=== PATIENT | female | born 2000 | race Caucasian/White ===

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

== ENCOUNTER 2021-10-20 15:21 | Emergency (ER) | payer BC ==
--- NOTE | 2021-10-20 15:29 | ERPHSYRPT ---
- History of Present Illness Time Seen by Provider: 10/20/21 15:29 Source: patient, family Exam Limitations: no limitations Physician History: This is a 21-year-old white female who states that she fell and hit her head 2 days ago and she has a mild headache and just feels "foggy". She is concerned because the symptoms have persisted without improvement. Patient denies visual changes. Patient denies neck pain. She has not had a fever or cough or flulike symptoms. Timing/Duration: day(s) (2) Quality: aching Head Pain Location: global Severity of Pain-Max: moderate Severity of Pain-Current: mild (To moderate) Recent Head Trauma: head trauma > 24 hrs ago Modifying Factors: Improves With: noise Associated Symptoms: No facial pain, No neck pain, No stiff neck, No vision changes Allergies/Adverse Reactions: No Known Drug Allergies Allergy (Verified 12/22/20 20:05) Home Medications: No Reportable Medications [No Reported Medications] 12/22/20 [History] Hx Tetanus, Diphtheria Vaccination/Date Given: Yes Hx Influenza Vaccination/Date Given: No Hx Pneumococcal Vaccination/Date Given: No Travel Risk - International Travel Have you traveled outside of the country in past 3 weeks: No - Coronavirus Screening Are you exhibiting any of the following symptoms?: No Close contact with a COVID-19 positive Pt in past 14-21 Days: No - Vaccine Status Have you recieved a Covid-19 vaccination: Yes [employer] Tech: Moderna - Vaccination Dates Date of 2cond Vaccination (if applicable): NOT GOTTEN - Review of Systems Constitutional: No Symptoms Eyes: No Symptoms Ears, Nose, & Throat: No Symptoms Respiratory: No Symptoms Cardiac: No Symptoms Abdominal/Gastrointestinal: No Symptoms Genitourinary Symptoms: No Symptoms Musculoskeletal: No Symptoms Skin: No Symptoms Neurological: Headache, Other ("Fogginess") Psychological: No Symptoms Endocrine: No Symptoms Hematologic/Lymphatic: No Symptoms Immunological/Allergic: No Symptoms All Other Systems: Reviewed and Negative - Past Medical History Pertinent Past Medical History: No Neurological History: No Pertinent History ENT History: No Pertinent History Cardiac History: No Pertinent History Respiratory History: No Pertinent History Endocrine Medical History: No Pertinent History Musculoskeletal History: No Pertinent History GI Medical History: No Pertinent History History: No Pertinent History Psycho-Social History: No Pertinent History Female Reproductive Disorders: No Pertinent History - Past Surgical History Past Surgical History: Yes Neuro Surgical History: No Pertinent History Cardiac: No Pertinent History Respiratory: No Pertinent History Gastrointestinal: No Pertinent History Genitourinary: No Pertinent History Musculoskeletal: No Pertinent History Female Surgical History: No Pertinent History Other Surgical History: tonsil and adenoidectomy - Social History Smoking Status: Never smoker Exposure to second hand smoke: No Drug Use: none Patient Lives Alone: No - Nursing Vital Signs Nursing Vital Signs: Initial Vital Signs Temperature 98.2 F 10/20/21 15:57 Pulse Rate 69 10/20/21 15:57 Respiratory Rate 18 10/20/21 15:57 Blood Pressure 150/97 10/20/21 15:57 O2 Sat by Pulse Oximetry 97 10/20/21 15:57 Pain Scale Pain Intensity 4 - Physical Exam General Appearance: no apparent distress, alert, anxiety Eye Exam: PERRL/EOMI, eyes nml inspection Ears, Nose, Throat Exam: normal ENT inspection, moist mucous membranes Neck Exam: normal inspection, non-tender, supple, full range of motion Respiratory Exam: normal breath sounds, lungs clear, airway intact, No chest tenderness, No respiratory distress Cardiovascular Exam: regular rate/rhythm, normal heart sounds, normal peripheral pulses Gastrointestinal/Abdominal Exam: soft, normal bowel sounds, No tenderness Back Exam: normal inspection, normal range of motion, vertebral tenderness, No CVA tenderness Extremity Exam: normal inspection, normal range of motion, pelvis stable Mental Status Exam: alert, 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, 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 Exam: normal hearing, normal speech, PERRL, tongue midline Coordination/Gait Exam: normal gait, normal cerebellar function Motor/Sensory Exam: no motor deficit, no sensory deficit, no pronator drift Skin Exam: normal color, warm, dry Lymphatic Exam: No adenopathy O2 Delivery: Room Air - Course Nursing assessment & vital signs reviewed: Yes Ordered Tests: Active Orders 24 hr Category Date Time Status HEAD WITHOUT CONTRAST [CT] Stat Exams 10/20/21 17:11 Taken Medication Summary Discontinued Medications Generic Name Dose Route Start Last Admin Trade Name Deisy PRN Reason Stop Dose Admin Clonidine 0.1 mg 10/20/21 17:13 10/20/21 17:15 Clonidine Hcl 0.1 Mg Tablet PO 10/20/21 17:14 Not Given STAT ONE - Progress Progress: re-examined, unchanged Air Movement: good Progress Note: 10/20/21 18:48 CAT scan of the head without contrast shows no acute intracranial abnormality. Blood Culture(s) Obtained: No Antibiotics given: No Counseled pt/family regarding: diagnosis, need for follow-up, rad results - Departure Departure Disposition: Home Clinical Impression: Postconcussion syndrome Condition: Stable Critical Care Time: No Referrals: TARA ROJAS [Primary Care Provider] - Follow up/PCP as directed Additional Instructions: Drink plenty fluids. Use Tylenol and ibuprofen for pain control. Follow-up with your primary care physician for persistent symptoms. Return to the emergency department for symptoms worsen.
[2021-10-20 17:04] VITALS: O2SAT 98
[2021-10-20] MEDS ORDERED: CLONIDINE 0.1 MG TABLET PO ONE (17:13)
[2021-10-20 18:37] VITALS: BP 136/98; PULSE 72
--- NOTE | 2021-10-21 08:34 | XRAY ---
Indication: Pain following head injury 2 days ago. Multiple contiguous axial images obtained through the head without contrast. Comparison: None Normal appearing brain parenchyma, ventricles, and bony calvarium. Visualized paranasal sinuses and mastoid air cells are clear. Impression: Normal CT head without contrast exam.
== END 2021-10-20 19:04 | disposition home or self-care (01) ==
LOC: ED 15:21
DX: G44.309 Post-traumatic headache, unspecified, not intractable (principal); F07.81 Postconcussional syndrome
CPT/HCPCS: 70450; 99283

== ENCOUNTER 2023-11-30 05:42 | Emergency (ER) | payer BC ==
[2023-11-30 06:25] VITALS: PULSE 106; RESP 18; TEMP 99; O2SAT 96
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
[2023-11-30 07:40] LABS: HCG URINE TEST NEGATIVE (NEGATIVE)
[2023-11-30 07:43] LABS: Appearance Clear (Clear); Bacteria None Seen /HPF (None Seen); Bilirubin Negative (Negative); Blood Negative (Negative); Epithelial Cells None Seen /HPF (None Seen); Glucose, Urine Negative (Negative); Hyaline Casts NONE SEEN /LPF (0-2); Ketones Negative (Negative); Leukocyte Esterase Negative (Negative); Nitrite Negative (Negative); Protein,Urine Dip Negative (Negative); RBC 0-2 /HPF (0-5); Specific Gravity <=1.005 (1.005-1.030); Urobilinogen 0.2 mg/dL (0.2); WBC 0-2 /HPF (0-5)
[2023-11-30] MEDS ORDERED: TORAdol 30 mg Injection ONE (08:05)
[2023-11-30] MEDS: TORAdol 30 mg Injection IM ONE (08:06)
[2023-11-30 08:24] VITALS: BP 119/88
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
== END 2023-11-30 08:37 | disposition home or self-care (01) ==
LOC: ED 05:42
DX: Z04.71 Encounter for examination and observation following alleged adult physical abuse (principal); S06.0X0A Concussion without loss of consciousness, initial encounter; S00.03XA Contusion of scalp, initial encounter; S00.532A Contusion of oral cavity, initial encounter; S83.91XA Sprain of unspecified site of right knee, initial encounter; Y04.2XXA Assault by strike against or bumped into by another person, initial encounter; J32.0 Chronic maxillary sinusitis; M25.561 Pain in right knee; M25.562 Pain in left knee; R51.9 Headache, unspecified; M54.2 Cervicalgia; Z72.0 Tobacco use
CPT/HCPCS: 70450; 70486; 72125; 73562; 74176; 81001; 81025; 96372; 99284; J1885

== ENCOUNTER 2023-12-03 12:19 | Emergency (ER) | payer BC ==
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
[2023-12-03 13:41] VITALS: BP 140/88; PULSE 62; RESP 18; TEMP 97; O2SAT 98
== END 2023-12-03 13:46 | disposition home or self-care (01) ==
LOC: ED 12:19
DX: G44.309 Post-traumatic headache, unspecified, not intractable (principal); F48.8 Other specified nonpsychotic mental disorders; F07.81 Postconcussional syndrome; Z72.0 Tobacco use
CPT/HCPCS: 70450; 99282